=== PATIENT | male | born 1960 | race Caucasian/White ===

== ENCOUNTER 2016-08-02 08:25 | Emergency (ER) | payer SELFPAY ==
[2016-08-02] MEDS ORDERED: Amiodarone 150 MG/3 ML SDV ONE (08:30)
[2016-08-02] MEDS ORDERED: EPINEPHrine 1:10,000 1 MG/10 ML Syringe ONE (08:30)
--- NOTE | 2016-08-02 08:57 | EDM.PDOC ---
ED HPI CPR - General Chief Complaint: CPR in Progress Stated Complaint: [facility] Time Seen by Provider: 08/02/16 08:40 Source of Information: Reports: EMS, Other (Girlfriend) - History of Present Illness INITIAL COMMENTS - FREE TEXT/NARRATIVE: The patient was on his way for breakfast with his girlfriend. He was driving. She said that he put on the breaks and said "oh shit" and put his hand on his chest and then was gasping for air and then went unresponsive. 911 was called right away and when EMS arrived they found him to be pulseless and apeneic. They started CPR right away established an IV and put Michael airway in. They found him to be in v-fib and shocked him once and gave him 2 epinephrine and a bicarb. He was in PEA for a short time. His girlfriend tells me that he has a history of HTN, diabetes and he did smoke. He was not ill recently and he was feeling good before he went for breakfast. Witness: Yes Bystander CPR: No Downtime Before ACLS: Other (a couple minutes) Nurse Staff [facility] Initial Findings: Reports: Pulse absent, Unresponsive, VF/VT Treatments CONTACT LENS TECHNICIAN: Reports: CPR, IV/IO, Other medication(s) (epinephrine, bicarb and defibrilation) - Related Data Allergies/ADRs: Allergies Allergy/AdvReac Type Severity Reaction Status Date / Time Unable to Assess Allergy Unverified 08/02/16 09:03 Home Meds: Home Meds . [Unable to Verify Home Med List] 08/02/16 [History] Past Medical History Cardiovascular History: Reports: Hypertension Endocrine/Metabolic History: Reports: Diabetes, type II Social & Family History - Tobacco Use Smoking Status *Q: Current Every Day Smoker ED ROS GENERAL - Review of Systems Review Of Systems: Unable To Obtain ED EXAM, CPR - Physical Exam Exam: See Below Limited By: unresponsive General Appearance: obtunded Eye Exam: bilateral eye: other (Pupils fixed and dilated) Ears: normal external exam Nose: normal inspection Throat/Mouth: Other (Michael airway in place) Head: atraumatic, normocephalic Respiratory Chest: other (Bilateral lung sound with ventilation by Michael Airway) Cardiovascular: absent heart sounds, pulse with compression, cpr in progress GI/Abdominal Exam (Abbreviated): soft, non tender, distended Neurological: unresponsive Course - Orders/Labs/Meds Orders: Active Orders 24 hr Category Date Time Status CBC WITH AUTO DIFF [HEME] Stat Lab 08/02/16 08:30 Results COMPREHENSIVE METABOLIC PN,CMP [CHEM] Stat Lab 08/02/16 08:30 Received INR,PT,PROTHROMBIN TIME [COAG] Stat Lab 08/02/16 08:30 Received LACTATE DEHYDROGENASE,LDH [CHEM] Stat Lab 08/02/16 08:30 Received PTT,PARTIAL THROMBOPLSTIN TIME [COAG] Stat Lab 08/02/16 08:30 Received TROPONIN I [CHEM] Stat Lab 08/02/16 08:30 Received Labs: Laboratory Tests 08/02/16 Range/Units 08:30 WBC 15.69 H (4.23-9.07) K/mm3 RBC 5.24 (4.63-6.08) M/mm3 Hgb 15.7 (13.7-17.5) gm/L Hct 48.6 (40.1-51.0) % MCV 92.7 H (79.0-92.2) fl MCH 30.0 (25.7-32.2) pg MCHC 32.3 (32.2-35.5) g/dl RDW Std Deviation 45.0 H (35.1-43.9) fL Plt Count 218 (163-337) K/mm3 MPV 9.3 L (9.4-12.3) fl Neut % (Auto) 28.4 L (34.0-67.9) % Lymph % (Auto) 59.4 H (21.8-53.1) % [place] % (Auto) 8.0 (5.3-12.2) % Eos % (Auto) 2.1 (0.8-7.0) Baso % (Auto) 0.4 (0.1-1.2) % Neut # (Auto) 4.45 (1.78-5.38) K/mm3 Lymph # (Auto) 9.32 H (1.32-3.57) K/mm3 [place] # (Auto) 1.26 H (0.30-0.82) K/mm3 Eos # (Auto) 0.33 (0.04-0.54) K/mm3 Baso # (Auto) 0.06 (0.01-0.08) K/mm3 - Re-Assessments/Exams Free Text/Narrative Re-Assessment/Exam: 04/04/17 09:00 The patient was moved over to our cot and CPR was continued and the Lawson device was applied to give compression. He had a good working IV and a Michael airway was in place. He had equal lung sounds bilaterally. ACLS protocols were followe. The patient was defibrilated a total of 3 times and he was given a total of 4 more doses of epinephrine and 300mg of amiodarone and 1 amp of bicarb. He continued to be in V-fib until the last pulse and rhythm check where he was in asystole. I did an US of his heart and there was no cardiac activity. He was pronounced at 0838 on 08/02/16. [facility] and he released the body. It appears he from a myocardial infarction and cardiac arrest. Departure - Departure Time of Disposition: 09:10 Disposition: 20 Preliminary Cause of *Q: Cardiac arrest Clinical Impression: Cardiac arrest Myocardial infarction Qualifiers: Myocardial infarction ST status: non-ST elevation myocardial infarction Qualified Code(s): I21.4 - Non-ST elevation (NSTEMI) myocardial infarction
== END 2016-08-03 03:00 | disposition expired ==
LOC: JD.ED 08:25 → EDBD 08:25 → MERGE 08:25 → JD.ED 08-03 03:00
DX: I21.4 Non-ST elevation (NSTEMI) myocardial infarction (principal); I46.9 Cardiac arrest, cause unspecified; I10 Essential (primary) hypertension; E11.9 Type 2 diabetes mellitus without complications; F17.200 Nicotine dependence, unspecified, uncomplicated
CPT/HCPCS: 36415; 80053; 83615; 84484; 85025; 85610; 85730; 92950; 96374; 96375; 99285; J0171; J0282; 99284-25